=== PATIENT | male | born 1950 | race Caucasian/White ===

== ENCOUNTER 2017-11-20 12:58 | Emergency (ER) | payer MEDICARE, SELFPAY ==
[~2017-11-20] VITALS: Ht 182.9 cm; Wt 108.2 kg
[2017-11-20 13:31] VITALS: BP 160/85
[2017-11-20] MEDS ORDERED: ASPI-515 PO (13:47)
[2017-11-20] MEDS ORDERED: OMEP20TA62 PO (13:47)
[2017-11-20] MEDS ORDERED: LISI-167 PO (13:47)
== END 2017-11-20 16:06 | disposition home or self-care (01) ==
LOC: ED 16:00
DX: S80.02XA Contusion of left knee, initial encounter (principal); S80.01XA Contusion of right knee, initial encounter; S50.02XA Contusion of left elbow, initial encounter; S39.012A Strain of muscle, fascia and tendon of lower back, initial encounter; S29.012A Strain of muscle and tendon of back wall of thorax, initial encounter; S16.1XXA Strain of muscle, fascia and tendon at neck level, initial encounter; I10 Essential (primary) hypertension; V43.51XA Car driver injured in collision with sport utility vehicle in traffic accident, initial encounter; Y93.89 Activity, other specified; Y92.89 Other specified places as the place of occurrence of the external cause; Y99.9 Unspecified external cause status
CPT/HCPCS: 72050; 72072; 72110; 99284